=== PATIENT | female | born 1965 | race American Indian/Alaskan Native ===

== ENCOUNTER 2016-11-12 06:48 | Inpatient (IN) | payer BC ==
[2016-11-02 08:57] VITALS: BMI 28.3
[2016-11-12] MEDS ORDERED: Midazolam 2 MG/2 ML VIAL ONE (07:17)
[2016-11-12] MEDS ORDERED: Propofol 10 mg/ml Inj (20 ML) ONE (07:17)
[2016-11-12] MEDS ORDERED: Rocuronium 10 mg/ml (5 ml) ONE ×2 (07:20→10:40)
[2016-11-12] MEDS ORDERED: Methylene Blue 10 mg/mL(10ml) IV ONE (08:03)
[2016-11-12] MEDS ORDERED: ceFAZolin IV 2 gm in Dextrose 1 GM/50 ML BAG IVPB ONE (08:03)
[2016-11-12] MEDS ORDERED: ceFAZolin IV 1 gm in Dextrose 0 GM/0 ML BAG IVPB ONE (08:03)
[2016-11-12] MEDS ORDERED: Bupivacaine HCl 0.25% PF (10 ml) Inj ONE (08:03)
[2016-11-12] MEDS ORDERED: HYDROmorphone 0.5 mg/0.5 ml ISec IVP PRN (08:04)
[2016-11-12] MEDS ORDERED: Bacitracin Ointment 30 GM TUBE ONE (08:04)
[2016-11-12] MEDS ORDERED: Lactated Ringer's 1,000 ML IV ONE ×4 (08:16→14:00)
[2016-11-12] MEDS ORDERED: Morphine 4 MG/ML VIAL ONE ×2 (09:14→10:40)
[2016-11-12] MEDS ORDERED: Vasopressin 20 Units/ml Inj ONE (09:34)
[2016-11-12] MEDS ORDERED: Sodium Chloride 0.9% 20 ML IV ONE (09:35)
[2016-11-12] MEDS ORDERED: Neostigmine Methylsulfate 3mg/3ml Syringe IV ONE (11:14)
--- NOTE | 2016-11-12 11:43 | PCM.SURG1 ---
Surgeon's Initial Post Op Note - Surgeon's Notes Surgeon: Elaine Vega MD Document Manager: Bonita Juarez MD, Joselo Su MD Type of Anesthesia: General Endo Pre-Operative Diagnosis: Sympomatic fibroids uterus, pelvic pain, abnormal uterien bleeidng Operative Findings: 18 weeks size multi fibroid uteurs, normal tubes and ovaries bilaterlaly, enlarged naterior myoma along left broad ligament 8cm, posterior myoma along cervical junction 5cm, anterior left cornual myoma 3cm, bilateral uretral jets visulzed on cystoscopy. Dr Larry Mesa and Dr Joselo Su were both surgical assistants and present for the entire case adn essential in gaing entry, retraction, epxousre, removing and debulking myomas, obtainign hemostasis, closign all layers Post-Operative Diagnosis: same as prevoperative diagnosis Operation Performed: Total abdominal hysterectomy with leiomyoma debulking/ intraoperative myoemctomy with biltaeral salpingectomy, cystsocopy Specimen/Specimens Removed: Uterus , myoma, cervix, fallopian tubes Estimated Blood Loss: EBL {In ML}: 500 Blood Products Given: N/A Drains Used: No Drains Post-Op Condition: Good Date of Surgery/Procedure: 11/12/16 Time of Surgery/Procedure: 08:30
[2016-11-12] MEDS ORDERED: HYDROmorphone 0.5 mg/0.5 ml ISec ONE ×4 (12:04→13:16)
[2016-11-12] MEDS ORDERED: Trimethobenzamide 200 mg/2 mL Inj IM PRN (12:21)
[2016-11-12] MEDS ORDERED: Oxycodone/Acetaminophen 5/325 mg Tab PO PRN (12:25)
[2016-11-12 12:50] LABS: HEMATOCRIT 37.9 % (34.0-47.0)
[2016-11-12 13:01] LABS: CHLORIDE 106 mmol/L (98-107); POTASSIUM 4.1 mmol/L (3.6-5.2); SODIUM 140 mmol/L (132-148)
[2016-11-12 13:04] LABS: BLOOD UREA NITROGEN 17 mg/dL (7-17); CARBON DIOXIDE 25 mmol/L (22-30); GFR AFRICAN-AMERICAN > 60; GLUCOSE,RANDOM 125 mg/dL (65-105)
[2016-11-12 13:05] LABS: CALCIUM 8.4 mg/dl (8.6-10.4)
[2016-11-12] MEDS: cefOXitin IV 1 gm in Dextrose 1 GM/50 ML BAG IVPB SCH ×2 (16:30→22:49)
[2016-11-12] MEDS: Lactated Ringer's 1,000 ML IV SCH (22:36)
[2016-11-13] MEDS: Lactated Ringer's 1,000 ML IV SCH ×2 (06:12→12:00)
[2016-11-13] MEDS: cefOXitin IV 1 gm in Dextrose 1 GM/50 ML BAG IVPB SCH (06:49)
--- NOTE | 2016-11-13 07:22 | CP.PCM.PN ---
Subjective - Date & Time of Evaluation Date of Evaluation: 11/13/16 Time of Evaluation: 07:00 - Subjective Subjective: Pt seen and examined with no compliaints. Pt reports minimal abodminal sorenss in LLQ. pt reports tolerating ice chips. Pt denies any fevers, chills ,nause, vmiitng, pain. Pt denies any lightheadnes, dizzyness, CP, SOB. Objective - Vital Signs/Intake and Output Vital Signs (last 24 hours): Temp Pulse Resp BP Pulse Ox 98.4 F 74 20 155/84 H 98 11/12/16 23:40 11/12/16 23:40 11/12/16 23:40 11/12/16 23:40 11/12/16 23:40 Intake and Output: 11/13/16 11/13/16 06:59 18:59 Intake Total 1220 Output Total 850 Balance 370 - Medications Medications: Current Medications Hydromorphone/Sodium Chloride (Dilaudid Joint Cutter Machine) 6 mg IV Q4H PRN; Protocol PRN Reason: Pain, severe (8-10) Last Admin: 11/12/16 14:00 Dose: 6 mg Cefoxitin Sodium (Mefoxin Iv 1 Gm Duplex) 1 gm in 50 mls @ 50 mls/hr IVPB Q8H [facility] Stop: 11/13/16 08:44 Last Admin: 11/13/16 06:49 Dose: 50 mls/hr Lactated Ringer's (Lactated Ringer's) 1,000 mls @ 125 mls/hr IV .Q8H [facility] Stop: 11/13/16 19:44 Last Admin: 11/13/16 06:12 Dose: 125 mls/hr Indomethacin (Indocin) 25 mg PO TID [facility] Last Admin: 11/12/16 18:22 Dose: Not Given Ondansetron HCl (Zofran Inj) 4 mg IVP ONCE PRN PRN Reason: Nausea/Vomiting Oxycodone/Acetaminophen (Percocet 5/325 Mg Tab) 1 tab PO Q6H PRN PRN Reason: Pain, moderate (4-7) Stop: 11/15/16 12:26 Trimethobenzamide HCl (Tigan) 200 mg IM Q6 PRN PRN Reason: Nausea/Vomiting - Labs Labs: 11/12/16 12:43 11/12/16 12:43 - Constitutional Appears: Well, Non-toxic - Head Exam Head Exam: ATRAUMATIC - Eye Exam Eye Exam: EOMI, Normal appearance Pupil Exam: NORMAL ACCOMODATION - ENT Exam ENT Exam: Mucous Membranes Moist - Neck Exam Neck Exam: Normal Inspection - Respiratory Exam Respiratory Exam: Clear to Ausculation Bilateral, NORMAL BREATHING PATTERN - Cardiovascular Exam Cardiovascular Exam: REGULAR RHYTHM, +S1, +S2 - GI/Abdominal Exam GI & Abdominal Exam: Soft, Normal Bowel Sounds Additional comments: non tender, no guarding, no rebound tenderness, no rigidiyt, +BS Incson C/D/I healing well no vaignal bleeding - Back Exam Back Exam: NORMAL INSPECTION - Neurological Exam Neurological Exam: Alert, Awake, Oriented x3 - Psychiatric Exam Psychiatric exam: Normal Affect, Normal Mood - Skin Skin Exam: Normal Color, Warm Additional comments: negatieve shar's sign Assessment and Plan (1) Status post hysterectomy Assessment & Plan: 1. Pain Managment: d/c line lead: for indomethacin, percoent prn 2. d/c owen 3. Activity: out of bed with assistance 4. Diet: Clears advance as tolerated 5. Continue Abodminal binder/ Incentive spirometer 6. HTN: restart home meds 7. AM Labs 8. Bowel regimen prn Status: Acute
[2016-11-13] MEDS ORDERED: Magnesium Hydroxide Susp 30 ml UD PO PRN (07:26)
[2016-11-13 08:19] LABS: HEMATOCRIT 31.9 % (34.0-47.0); MEAN CELL VOLUME 96.7 fL (81.0-99.0); MEAN CORPUSCULAR HEMOGLOBIN 33.3 pg (27.0-31.0); MEAN CORPUSCULAR HGB CONC 34.4 g/dL (33.0-37.0); MEAN PLATELET VOLUME 8.2 fL (7.2-11.7); RED CELL DISTRIBUTION WIDTH 13.1 % (11.5-14.5); WHITE BLOOD COUNT 10.2 K/uL (4.8-10.8)
[2016-11-13] MEDS: Oxycodone/Acetaminophen 5/325 mg Tab PO PRN ×2 (08:25→15:58)
[2016-11-13 08:29] LABS: CHLORIDE 104 mmol/L (98-107); POTASSIUM 3.7 mmol/L (3.6-5.2); SODIUM 136 mmol/L (132-148)
[2016-11-13 08:31] LABS: GFR AFRICAN-AMERICAN > 60
[2016-11-13 08:32] LABS: BLOOD UREA NITROGEN 9 mg/dL (7-17); CALCIUM 7.8 mg/dl (8.6-10.4); CARBON DIOXIDE 26 mmol/L (22-30); GLUCOSE,RANDOM 85 mg/dL (65-105)
[2016-11-13] MEDS: Simethicone 80 mg Chewtab PO SCH ×2 (13:42→22:08)
[2016-11-14] MEDS: Simethicone 80 mg Chewtab PO SCH ×3 (05:50→21:13)
--- NOTE | 2016-11-14 12:48 | CP.PCM.PN ---
Subjective - Date & Time of Evaluation Date of Evaluation: 11/14/16 Time of Evaluation: 07:00 - Subjective Subjective: No acute events overnight pt ambuating, voiidng, passing flatus, tolerating diet. pt reports pian is well controlled. denies any lightheadnd, dizzyness, cp, sob, vagial bleeding, fever, chills, nasue, vomiting. Objective - Vital Signs/Intake and Output Vital Signs (last 24 hours): Temp Pulse Resp BP Pulse Ox 98.5 F 74 18 139/79 98 11/14/16 09:19 11/14/16 09:19 11/14/16 09:19 11/14/16 09:19 11/14/16 09:19 Intake and Output: 11/14/16 11/14/16 06:59 18:59 Intake Total 680 Balance 680 - Medications Medications: Current Medications Amlodipine Besylate (Norvasc) 10 mg PO DAILY [facility] Last Admin: 11/14/16 10:18 Dose: 10 mg Indomethacin (Indocin) 25 mg PO TID [facility] Last Admin: 11/14/16 10:18 Dose: 25 mg Losartan Potassium (Cozaar) 100 mg PO DAILY [facility] Last Admin: 11/14/16 10:18 Dose: 100 mg Magnesium Hydroxide (Milk Of Magnesia) 30 ml PO ONCE PRN PRN Reason: Constipation Last Admin: 11/14/16 10:18 Dose: 30 ml Ondansetron HCl (Zofran Inj) 4 mg IVP ONCE PRN PRN Reason: Nausea/Vomiting Oxycodone/Acetaminophen (Percocet 5/325 Mg Tab) 1 tab PO Q6H PRN PRN Reason: Pain, moderate (4-7) Stop: 11/15/16 12:26 Oxycodone/Acetaminophen (Percocet 5/325 Mg Tab) 2 tab PO Q6H PRN PRN Reason: Pain, severe (8-10) Stop: 11/16/16 07:24 Last Admin: 11/13/16 15:58 Dose: 2 tab Simethicone (Mylicon Chew Tab) 80 mg PO Q8 [facility] Last Admin: 11/14/16 05:50 Dose: 80 mg Trimethobenzamide HCl (Tigan) 200 mg IM Q6 PRN PRN Reason: Nausea/Vomiting - Labs Labs: 11/13/16 08:11 11/13/16 08:11 - Constitutional Appears: Well, Non-toxic - Head Exam Head Exam: ATRAUMATIC, NORMAL INSPECTION - Eye Exam Eye Exam: EOMI Pupil Exam: NORMAL ACCOMODATION, PERRL - Neck Exam Neck Exam: Normal Inspection - Respiratory Exam Respiratory Exam: Clear to Ausculation Bilateral, NORMAL BREATHING PATTERN - Cardiovascular Exam Cardiovascular Exam: REGULAR RHYTHM, +S1, +S2 - GI/Abdominal Exam GI & Abdominal Exam: Soft, Normal Bowel Sounds Additional comments: NT/No guarding, no reboudn tendners,s no rigidty Incsion c/d/i healing well - Extremities Exam Extremities Exam: Full ROM, Normal Inspection Additional comments: negative shar's sign - Neurological Exam Neurological Exam: CN II-XII Intact, Oriented x3 - Psychiatric Exam Psychiatric exam: Normal Affect - Skin Skin Exam: Dry, Normal Color, Warm Assessment and Plan (1) Status post hysterectomy Assessment & Plan: 1. Pain managment : percoet/ indomethasin 2. Diet; heart healthy 3. Encourage ambaution, incentice spirometer, abodminal binder 4. HTN: continue home meds, VS per protocol with parameters 5. AM lbs 6. Anticipate d/ lisa am Status: Acute
[2016-11-14 16:46] VITALS: RESP 20
[2016-11-15] MEDS: Simethicone 80 mg Chewtab PO SCH (06:24)
--- NOTE | 2016-11-15 09:16 | CP.PCM.PN ---
Subjective - Date & Time of Evaluation Date of Evaluation: 11/15/16 Time of Evaluation: 06:00 - Subjective Subjective: pt with no new overnight events, feeling well. reports pian well controlled with medicatoin. pt ambuatng, voiddng, passing flatus, no vaignal bleeding, toelrateing regular diet, voiding. pt denies any fever,s hcl, nause, vomitng, cp , sob, lightheandss, dizzyness, headaches, blurry vusin Objective - Vital Signs/Intake and Output Vital Signs (last 24 hours): Temp Pulse Resp BP Pulse Ox 98.7 F 81 20 145/91 H 98 11/15/16 08:10 11/15/16 08:10 11/15/16 08:10 11/15/16 08:10 11/15/16 08:10 Intake and Output: 11/15/16 11/15/16 06:59 18:59 Intake Total 500 Balance 500 - Medications Medications: Current Medications Amlodipine Besylate (Norvasc) 10 mg PO DAILY [facility] Last Admin: 11/14/16 10:18 Dose: 10 mg Indomethacin (Indocin) 25 mg PO TID [facility] Last Admin: 11/14/16 18:09 Dose: 25 mg Losartan Potassium (Cozaar) 100 mg PO DAILY [facility] Last Admin: 11/14/16 10:18 Dose: 100 mg Magnesium Hydroxide (Milk Of Magnesia) 30 ml PO ONCE PRN PRN Reason: Constipation Last Admin: 11/14/16 10:18 Dose: 30 ml Ondansetron HCl (Zofran Inj) 4 mg IVP ONCE PRN PRN Reason: Nausea/Vomiting Oxycodone/Acetaminophen (Percocet 5/325 Mg Tab) 1 tab PO Q6H PRN PRN Reason: Pain, moderate (4-7) Stop: 11/15/16 12:26 Oxycodone/Acetaminophen (Percocet 5/325 Mg Tab) 2 tab PO Q6H PRN PRN Reason: Pain, severe (8-10) Stop: 11/16/16 07:24 Last Admin: 11/13/16 15:58 Dose: 2 tab Simethicone (Mylicon Chew Tab) 80 mg PO Q8 [facility] Last Admin: 11/15/16 06:24 Dose: 80 mg Trimethobenzamide HCl (Tigan) 200 mg IM Q6 PRN PRN Reason: Nausea/Vomiting - Labs Labs: 11/13/16 08:11 11/13/16 08:11 - Constitutional Appears: Well, Non-toxic - Head Exam Head Exam: ATRAUMATIC, NORMAL INSPECTION - Eye Exam Eye Exam: EOMI, Normal appearance Pupil Exam: NORMAL ACCOMODATION - ENT Exam ENT Exam: Mucous Membranes Moist - Neck Exam Neck Exam: Normal Inspection - Respiratory Exam Respiratory Exam: Clear to Ausculation Bilateral, NORMAL BREATHING PATTERN - Cardiovascular Exam Cardiovascular Exam: +S1, +S2 - GI/Abdominal Exam GI & Abdominal Exam: Soft, Normal Bowel Sounds Additional comments: incision c/d/i healing well no aignal beeidng - Extremities Exam Extremities Exam: Full ROM, Normal Inspection Additional comments: negative shar's sign Assessment and Plan (1) Status post hysterectomy Assessment & Plan: s/p KELLY POD #3 doing well 1. d/ chome 2. HTN: Continue home meds 3. RTO 1 week 4. Precauitns given Status: Acute
--- NOTE | 2016-11-15 09:20 | CP.PCM.DIS ---
Provider - Provider Date of Admission: 11/12/16 06:48 Attending physician: Elaine Vega MD Time Spent in preparation of Discharge (in minutes): 25 Diagnosis - Discharge Diagnosis (1) Status post hysterectomy Status: Acute Priority: Medium Hospital Course - Lab Results Lab Results: Most Recent Lab Values WBC 10.2 K/uL (4.8-10.8) D 11/13/16 08:11 RBC 3.30 Mil/uL (3.80-5.20) L 11/13/16 08:11 Hgb 11.0 g/dL (11.0-16.0) 11/13/16 08:11 Hct 31.9 % (34.0-47.0) L 11/13/16 08:11 MCV 96.7 fL (81.0-99.0) 11/13/16 08:11 MCH 33.3 pg (27.0-31.0) H 11/13/16 08:11 MCHC 34.4 g/dL (33.0-37.0) 11/13/16 08:11 RDW 13.1 % (11.5-14.5) 11/13/16 08:11 Plt Count 236 K/uL (130-400) 11/13/16 08:11 MPV 8.2 fL (7.2-11.7) 11/13/16 08:11 Sodium 136 mmol/L (132-148) 11/13/16 08:11 Potassium 3.7 mmol/L (3.6-5.2) 11/13/16 08:11 Chloride 104 mmol/L (98-107) 11/13/16 08:11 Carbon Dioxide 26 mmol/L (22-30) 11/13/16 08:11 Anion Gap 10 (10-20) 11/13/16 08:11 BUN 9 mg/dL (7-17) 11/13/16 08:11 Creatinine 0.6 MG/DL (0.7-1.2) L 11/13/16 08:11 Est GFR ( Amer) > 60 11/13/16 08:11 Est GFR (Non-Af Amer) > 60 11/13/16 08:11 Random Glucose 85 mg/dL (65-105) 11/13/16 08:11 Calcium 7.8 mg/dl (8.6-10.4) L 11/13/16 08:11 Blood Type O POSITIVE 11/12/16 07:56 Antibody Screen Negative 11/12/16 07:56 - Hospital Course Hospital Course: s/p KELLY with normla postoperative course, d/ c home POD #3 Discharge Exam - Head Exam Head Exam: ATRAUMATIC, NORMAL INSPECTION - Eye Exam Eye Exam: EOMI - Respiratory Exam Respiratory Exam: Clear to PA & Lateral, NORMAL BREATHING PATTERN, UNREMARKABLE - Cardiovascular Exam Cardiovascular Exam: REGULAR RHYTHM, +S1, +S2 - GI/Abdominal Exam GI & Abdominal Exam: Normal Bowel Sounds, Unremarkable - Back Exam Back exam: NORMAL INSPECTION - Neurological Exam Neurological exam: Alert, CN II-XII Intact, Oriented x3 Discharge Plan - Discharge Medications Prescriptions: Acetaminophen/Oxycodone Hydr [Oxycodone and Acetaminophen 325 mg-2.5 mg] 2 tab PO Q6 PRN #15 tab PRN Reason: Pain, Severe (8-10) - Follow Up Plan Disposition: HOME/ ROUTINE Patient education suggested?: Yes
[2016-11-15 09:24] VITALS: BP 145/91; PULSE 81; TEMP 98.7; O2SAT 98
--- NOTE | 2016-11-17 18:49 | OP ---
PROCEDURE DATE: 11/12/2016 SURGEON: Elaine Vega MD ASSISTANTS: 1. Larry Mesa MD 2. Joselo Su MD PREOPERATIVE DIAGNOSES: 1. Symptomatic fibroid uterus. 2. Pelvic pain. 3. Abnormal uterine bleeding. POSTOPERATIVE DIAGNOSES: 1. Symptomatic fibroid uterus. 2. Pelvic pain. 3. Abnormal uterine bleeding. TYPE OF ANESTHESIA: General endotracheal. OPERATIVE FINDINGS: A 18-week size multi fibroid uterus, normal tube and ovaries bilaterally, enlarged, left broad ligament, 8 cm posterior myoma along the cervical junction, 5 cm anterior left cornual myoma, 3 cm bilateral ureteral jets visualized on cystoscopy. Dr. Larry Mesa and Dr. Joselo Su MD were surgical assistants who were present for entire case and assisted with getting entry, retraction, exposure, removing the bulky myomas, achieving hemostasis, closing all layers. OPERATIONS PERFORMED: Total abdominal hysterectomy with leiomyoma with a bulky intraoperative myomectomy with bilateral salpingectomy, and cystoscopy. SPECIMEN: Uterus, myomas, cervix, and fallopian tubes. ESTIMATED BLOOD LOSS: 500 mL. BLOOD PRODUCTS: None. COMPLICATIONS: None. DESCRIPTION OF PROCEDURE: The patient was taken to the operating where she was given general anesthesia. Once found to be adequate, she was placed on the operating table in dorsal lithotomy position. The patient was then prepped and draped in the usual sterile fashion. A time-out confirmed correct patient and correct procedure. The patient was given preoperative prophylactic antibiotics. A Pfannenstiel skin incision was made with a scalpel, hairline to the underlying fascia with Bovie. The fascia was incised in the midline and incision was extended laterally with the Bovie. Inferior aspect of the fascial incision was grasped with Allis and Bladimir clamps and the underlying rectus muscle resected off bluntly. Attention was then turned to the superior aspect of the incision with a similar fashion, it was grasped with Allis and Bladimir clamps and underlying rectus muscle resected off bluntly. The rectus was then bluntly in the midline. The peritoneum was identified in the clear space, entered sharply with the Metzenbaum scissors, extended laterally, superiorly and there was good visualization. Once inside the abdominal cavity, a self-retaining retractor was placed to expose the pelvic cavity with three lap sponges. The uterus was then identified and grasped and the fundus with a single-toothed tenaculum with upward traction. The round ligaments on either side were identified and individually dissected and ligated with 0 Vicryl suture and divided. This allowed us to then create a bladder flap by both blunt and sharp dissection using the Metzenbaum scissors from the anterior portion of the broad ligament. The fallopian tube and ovarian ligament were then isolated through the broad ligament from the uterine body and ligated with 0 Vicryl suture and divided it as well. The uterine vessels were then attempted to be skeletonized, but due to a large myoma occluding view, vasopressin line was injected into the base of the myoma and the myoma was then resected using the Bovie and using a single-tooth tenaculum was carved out respectively and the defect was then closed to help assure with hemostasis. We were then able to skeletonize the uterine vessels on either side and carefully dissect the bladder flap anteriorly. Posteriorly, the peritoneum was dissected downward towards the uterosacral ligament. The fallopian tube was then carefully isolated on the mesosalpinx, the uterosacral ligament using the vessel sealer device. Tushar clamps were then placed at the each isthmic portion of the cervical body junction where the uterine arteries have jointed the uterus. These were clamped, ligated, and divided using 0 Vicryl suture. The remaining of the uterus is then removed by clamp, cut, ligation technique using 0 Vicryl suture on all major pedicles down to the cervix. With removal of the uterus and the cervix, and both fallopian tubes, the vaginal cuff then closed in its usual manner with 0 Vicryl suture in an atraumatic fashion. There was good hemostasis noted and the vaginal cuff was closed as well. Hemostasis was then inspected and secured throughout the entire area. We then closed the fascia over the vaginal cuff using 2-0 Vicryl suture in a running continuous manner. The ovaries were left inside and suspended to the side wall. The laps and sponges were then removed and the self-retraining retractor was removed. Again, there was good hemostasis noted. The patient tolerated this operation nicely. There was no complications associated with the procedure at this point. The sponge and needle counts were noted to be correct x2. We then began closure of the abdomen. The peritoneum was re-approximated and closed with 2-0 Vicryl in a running continuous manner. The fascia was re-approximated with 0 Vicryl in a running continuous fashion. The subcutaneous tissue was also filled with 2-0 Vicryl in a running continuous manner. The skin was re-approximated and closed with 3-0 Monocryl in a running subcuticular fashion. The abdomen was then prepped and cleaned and there was good hemostasis noted. Following this, attention was then turned to the peritoneum where the patient was then frog-legged, the Green catheter was then removed and a Syriac cystoscope was then inserted into the urethra. The urethra was normal throughout with no valvular strictures. The bladder was normal with good distention using normal saline as a distention media with no evidence of masses or sutures. There were bilateral ureteral jets noted on both sides of the . There was no evidence of abnormalities noted. The cystoscope was removed. At the end of the procedure, all needle, sponge, and instrument counts were noted as correct x2. The patient tolerated the procedure well and was transferred to the recovery room in stable condition. Elaine Vega MD
== END 2016-11-15 11:48 | disposition home or self-care (01) | DRG 743 ==
LOC: C.9S 06:48 → C.6T 14:02
PROVIDERS: ADMIT Obstetrics & Gynecology; ATTEND Obstetrics & Gynecology
PROC: 0UB90ZZ Excision of Uterus, Open Approach (ICD-10-PCS; 2016-11-12)
PROC: 0UT70ZZ Resection of Bilateral Fallopian Tubes, Open Approach (ICD-10-PCS; 2016-11-12)
PROC: 0UT90ZZ Resection of Uterus, Open Approach (ICD-10-PCS; principal; 2016-11-12 08:40)
PROC: 0UTC0ZZ Resection of Cervix, Open Approach (ICD-10-PCS; 2016-11-12 08:40)
DX: D25.9 Leiomyoma of uterus, unspecified (principal); R10.2 Pelvic and perineal pain; N93.8 Other specified abnormal uterine and vaginal bleeding; N80.0 Endometriosis of uterus; N87.9 Dysplasia of cervix uteri, unspecified